=== PATIENT | female | born 1990 ===

== ENCOUNTER 2025-02-24 13:43 | Emergency (ER) | payer MEDICAID, SELFPAY ==
[2025-02-24 13:50] VITALS: BP 150/80; PULSE 83; RESP 18; TEMP 36.6; O2SAT 98; BMI 33.9
--- NOTE | 2025-02-24 13:53 | ED.GENADULT ---
HPI - General Adult General Chief complaint: Skin/Abscess/Foreign Body Stated complaint: skin infection Time Seen by Provider: 02/24/25 16:08 Source: patient, RN notes reviewed and old records reviewed Mode of arrival: ambulatory Limitations: no limitations History of Present Illness ED Provider: Sherman SEGURA narrative: 34-year-old female with past medical history significant for rheumatoid arthritis on Humira presents for evaluation of a rash. She initially felt as if she had a skin infection on both feet. She treated this for 2 days with an [id number] antifungal cream. After using the cream she felt as if her feet were more swollen. She was scratching and felt as if the rash got worse pain She went to urgent care and was given topical and oral antibiotics with mupirocin and Keflex. She completed the course and reports that his symptoms have worsened. Denies fevers or chills pain The rash is mostly itchy, no significant pain she is not a diabetic she stopped her Humira while she was taking the antibiotics Related Data Previous Rx's ?Medication ?Instructions ?Recorded doxycycline hyclate 100 mg tablet 100 mg PO BID #14 tabs 02/24/25 ketoconazole 2 % topical cream 1 appl topical BID 2 weeks #30 02/24/25 grams Allergies Allergy/AdvReac Type Severity Reaction Status Date / Time No Known Allergies Allergy Verified 02/24/25 13:54 Review of Systems Constitutional: Constitutional: Denies body ache(s), Denies chills and Denies fever(s) Eyes: Eyes: Denies blurry vision ENT: Denies vertigo Cardiovascular: Cardiovascular: Denies chest pain and Denies dyspnea on exertion Respiratory: Respiratory: Denies cough and Denies dyspnea on exertion Gastrointestinal: Gastrointestinal: Denies abdominal pain, Denies nausea and Denies vomiting Musculoskeletal: Musculoskeletal: Denies back pain Integumentary/Breasts: Skin/Breast: Reports pruritus and Reports rash Neurologic: Denies vertigo Psychiatric: Psychiatric: Denies anxiety PMFSH Social History Social History Advance Directives: No Advance Directives Information Provided: Yes Physical Exam ED Vital Signs: Vital Signs - 24 hr 02/24/25 13:50 Temperature 97.9 F Pulse Rate 83 Respiratory Rate 18 Blood Pressure 150/80 H Pulse Oximetry 98 Oxygen Delivery Method Room Air BMI result Body Mass Index 33.9 Const General: healthy appearing, comfortable, no acute distress, alert and awake Nutritional Appearance: well nourished Orientation/consciousness: patient oriented x3 HENMT Head: Yes normocephalic and Yes atraumatic Eyes Eyelids: Yes eyelids normal Conjunctivae: conjunctivae normal Sclerae: sclerae normal Corneas: corneas normal Pupils: Equal, round and reactive pupils present EOM: EOMs intact bilaterally Neck Neck: Yes full ROM Resp Effort & Inspection: normal respiratory effort, able to speak in complete sentences and not labored Skin Other: there was an erythematous rash on the dorsal surface of the foot, there was no significant involvement between the toes. There is some scaling noted, some skin breakdown. No significant increased warmth. No purulent drainage. There was a less severe, erythematous macular rash to the flexor surfaces of the elbows and the anterior neck under the chin. No facial involvement General skin exam: elasticity normal Neuro General: patient oriented x3 Cranial nerves: Yes Equal, round and reactive pupils present and Yes Bilaterally intact EOM present Cognition (Neuro): normal cognition Extrem Other: Moving all extremities well without any obvious deformities Course Course Course Narrative: This is a Rapid Medical Examination (RME) performed by Marylu Ramos PA-C in triage. Full HPI, ROS, assessment and treatment plan per primary provider in the Main ED. Hx: 34 yo F here for eval of skin infection/rash. evaluated at 2 weeks ago for rash to b/l feet - diagnosed w/ cellulitis/impetigo, discharged w/ topical mupirocin and betamethasone and PO keflex. completed PO abx. now having worsening rash to feet with a new diffuse body rash that is pruritic. Plan: labs Medical Decision Making Medical Decision Making [facility] Narrative: the patient's rash does not appear to be consistent with a clear cellulitis. It is unlikely that she would have cellulitis on both feet at the same time. There was no increased warmth, no fevers the patient has no leukocytosis. I did discuss with my attending and we decided to treat the patient with a topical antifungal with ketoconazole twice daily for 2 weeks. We will still cover with antibiotics as the patient does have some skin breakdown to cover for superimposed cellulitis. less likely this is an atypical eczema presentation and we encouraged the patient to follow up with Dermatology. Return precautions were given including fever, significantly worsening of the rash Differential Diagnosis Differential Diagnoses: The differential diagnosis associated with the presentation includes dermatitis Cellulitis Tinea pedis Candidiasis Eczema Lab Data MDM Lab Attestation statement: I reviewed the patient's lab results. no leukocytosis or anemia. Normal platelet count. No significant electrolyte abnormalities warranting dimension. 02/24/25 14:16 02/24/25 14:16 Labs: Lab Results 02/24/25 Range/Units 14:16 WBC 5.0 (4.8-10.8) X10*3/uL RBC 4.75 (4.20-5.50) X10*6/uL Hgb 14.1 (12.0-16.0) g/dl Hct 41.9 (37.0-47.0) % MCV 88.2 (80.0-98.0) fL MCH 29.7 (27.0-33.0) pg MCHC 33.7 (31.0-35.0) g/dl RDW 12.3 (11.0-16.0) % Plt Count 291 (160-400) X10*3/uL MPV 9.3 L (9.4-12.3) fL Immature Gran % (Auto) 0.2 (0.0-0.4) % Neut % (Auto) 35.1 L (45-73) % Lymph % (Auto) 42.0 H (20-40) % [place] % (Auto) 6.6 (2-11) % Eos % (Auto) 15.1 H (0-4) % Baso % (Auto) 1.0 (0-2) % Lymph # (Auto) 2.1 (1.2-4.9) X10*3/uL [place] # (Auto) 0.3 (0.1-1.2) X10*3/uL Eos # (Auto) 0.8 H (0.0-0.4) X10*3/uL Baso # (Auto) 0.1 (0.0-0.2) X10*3/uL Abs Immat Gran (auto) 0.01 (0.00-0.03) X10*3/uL Absolute Neuts (auto) 1.8 L (2.0-8.3) x10*3/uL Absolute Nucleated RBC 0.000 (0.0-0.012) X10*3/uL Nucleated RBC % (auto) 0.0 (0.0-0.2) /100WBC Sodium 141 (135-145) mmol/L Potassium 3.4 (3.3-5.1) mmol/L Chloride 106 (96-108) mmol/L Carbon Dioxide 28 (22-29) mmol/L Anion Gap 10 L (12-20) BUN 16 (9-16) mg/dL Creatinine 0.80 (0.5-1.4) mg/dL Estim Creat Clear Calc 95.8 Estimated GFR > 60 Random Glucose 134 H (60-115) mg/dL Calcium 9.4 (8.4-10.2) mg/dL Magnesium 1.9 (1.6-2.6) mg/dL Total Bilirubin 0.6 (0.0-1.0) mg/dL AST 27 (5-31) U/L ALT 24 (0-31) U/L Alkaline Phosphatase 75 (39-117) U/L Total Protein 7.7 (6.5-8.0) g/dL Albumin 4.6 (3.5-5.0) g/dL Attestation Attending Attestation: Evaluated rash with JASSON Cain. It appears fungal in nature pruritic. Perhaps superimposed cellulitis. Will prescribe oral antibiotic and antifungal cream. Patient appears well Discharge Plan Discharge Clinical Impression: Dermatitis Patient Disposition: Home, Self-Care Instructions: Skin Yeast Infection (ED), Dermatitis (ED) Additional Instructions: your rash is consistent with initially a fungal infection. There may be a component of cellulitis as well. Apply the ketoconazole twice daily as prescribed for 2 weeks. Take doxycycline twice daily for 7 days I recommend trying to follow up with the [facility] in [place]. [address], [address], [place] [address]. Phone number: [phone] Prescriptions: New ketoconazole 2 % cream 1 appl topical BID 14 Days Qty: 30 0RF doxycycline hyclate 100 mg tablet 100 mg PO BID Qty: 14 0RF Print Language: German
[2025-02-24 14:23] LABS: MANUAL DIFF FLAG NO
[2025-02-24 14:25] LABS: Hematocrit 41.9 % (37.0-47.0); Hemoglobin 14.1 g/dl (12.0-16.0); Imm Gran Abs Auto 0.01 X10*3/uL (0.00-0.03); Imm Gran Pct Auto 0.2 % (0.0-0.4); Lymphocytes Absolute Auto 2.1 X10*3/uL (1.2-4.9); Mean Corpuscular HGB Conc 33.7 g/dl (31.0-35.0); Mean Corpuscular Hemoglobin 29.7 pg (27.0-33.0); Mean Corpuscular Volume 88.2 fL (80.0-98.0); NRBC Abs Auto 0.000 X10*3/uL (0.0-0.012); NRBC Pct Auto 0.0 /100WBC (0.0-0.2); Platelet Count 291 X10*3/uL (160-400); Red Blood Count 4.75 X10*6/uL (4.20-5.50); White Blood Count 5.0 X10*3/uL (4.8-10.8)
[2025-02-24 14:39] LABS: Alanine Aminotransferase 24 U/L (0-31); Albumin Level 4.6 g/dL (3.5-5.0); Alkaline Phosphatase 75 U/L (39-117); Anion Gap 10 (12-20); Aspartate Amino Transferase 27 U/L (5-31); Blood Urea Nitrogen 16 mg/dL (9-16); Calcium 9.4 mg/dL (8.4-10.2); Carbon Dioxide 28 mmol/L (22-29); Chloride 106 mmol/L (96-108); Creatinine Clr Calc Pharmacy 95.8; Estimated Glomerular Filt Rate > 60; Magnesium 1.9 mg/dL (1.6-2.6); Potassium 3.4 mmol/L (3.3-5.1); Sodium 141 mmol/L (135-145); Total Protein 7.7 g/dL (6.5-8.0)
[2025-02-24 17:15] VITALS: BP 124/73; PULSE 75; RESP 18; TEMP 36.6; O2SAT 95
[2025-02-24 17:17] VITALS: BP 124/73; PULSE 75; RESP 18; TEMP 36.6; O2SAT 95
--- OUTSIDE RECORDS SUMMARY | 2025-02-24 21:57 | XMS_ITS | Encounter Summary ---
Author Organization [facility] Address [address] [place] [id number] Phone Care Team Providers Care Paper Tube Cutter Name Role Phone Monique Torres CNP Primary Care Provider [phone] Encounter Details Date Type Department Care Team (Late st Contact Info) Description 12/28/2021 Procedure Pass [address] [place] [address] Social History Tobacco Use Types Packs/Day Years Used Date Smoking Tobacco: Some Days Smokeless Tobacco: Never Alcohol Use Standard Drinks/Week Comments Yes 0 (1 standard drink = 0.6 oz pur e alcohol) rarely Comments Unknown Sex and Gender Information Value Date Recorded Sex Assigned at Female 06/19/2018 10:59 PM EST Legal Sex Female 10:52 PM EST Gender Identity Female 06/19/2018 10:59 PM EST Sexual Orientation Lesbian or Chairez 06/13/2023 10 :35 AM EST documented as of this encounter Plan of Treatment Not on file documented as of this encounter Visit Diagnoses Not on filedocumented in this encounter Additional Health Concerns Infection Onset Date Last Indicated Resolved Time COVID-19 12/06/2022 12/06/2022 12/27/2022 1:21 AM EDT documented as of this encounter Care Teams Paper Tube Cutter Relationship Specialty Start Date End Date Monique Torres CNP [address] [place] [address] ISABELL Scott [id number] [email or web address] PCP - General Adult Health 06/19/18 documented as of this encounter Additional Source Comments The information contained in this document represents components of the legal health record. It is not the complete legal health record.[facility]
--- OUTSIDE RECORDS SUMMARY | 2025-02-24 21:57 | XMS_ITS | Encounter Summary ---
Author Organization [facility] Address [address] [place] [address] Phone Care Team Providers Care Casino Porter Name Role Phone Monique Torres CNP Primary Care Provider [phone] Encounter Details Date Type Department Care Team (Latest Contact Info) Description 12/07/2021 Transcribe Orders Virtual Department [address] [place] [address] Mago Delacruz NP [address] [place] [address] LLQ abdominal pain (Primary Dx); Constipation, unspecified constipation type Social History Tobacco Use Types Packs/Day Years [...] on file documented as of this encounter Results * US ABDOMEN COMPLETE (ADULT) (12/26/2021 8:40 AM EDT) Anatomical Region Laterality Modality Abdomen Ultrasound 12/26/2021 12:0 7 PM EDT Impressions 12/26/2021 12:12 PM EDT 1.No significant sonographic abnormality in the abdomen. 2.3 cm left ovarian hemorrhagic cyst, corresponding to the area of pain indicated by the patient, benign. No imaging follow-up is required as per current ACR guidelines. Narrative 12/26/2021 12:12 PM EDT US ABDOMEN COMPLETE (ADULT) TECHNIQUE: Abdominal Ultrasound Complete. COMPARISON: None FINDINGS: Liver: Normal. No focal lesions. Main Portal Vein: Patent with normal direction of flow. Gallbladder: Normal. No gallstones or gallbladder wall thickening. Biliary: Normal. No intrahepatic or extrahepatic biliary ductal dilatation. The common bile duct measures 3 mm. Pancreas: Visualized portions are unremarkable Spleen: Normal. No splenomegaly. Kidneys: Normal. No stones or hydronephrosis. Aorta: Normal, where visualized sonographically. IVC: Normal intrahepatic segment. Targeted ultrasound examination of the area of pain indicated by the patient over the left lower quadrant demonstrates the left ovary which measures 5.5 x 3.7 x 3.2 cm with a 3 x 1.8 x 2.2 cm left ovarian complex cystic mass with dependent echogenic fluid fluid level and no significant internal vascularity, most likely representing a hemorrhagic cyst Procedure Note Jaqueline Dixon MD - 12/26/2021 US ABDOMEN COMPLETE (ADULT) TECHNIQUE: Abdominal Ultrasound Complete. COMPARISON: None FINDINGS: Liver: Normal. No focal lesions. Main Portal Vein: Patent with normal direction of flow. Gallbladder: Normal. No gallstones or gallbladder wall thickening. Biliary: Normal. No intrahepatic or extrahepatic biliary ductaldilatation. The common bile duct measures 3 mm. Pancreas: Visualized portions are unremarkable Spleen: Normal. No splenomegaly. Kidneys: Normal. No stones or hydronephrosis. Aorta: Normal, where visualized sonographically. IVC: Normal intrahepatic segment. Targeted ultrasound examination of the area of pain indicated by thepatient over the left lower quadrant demonstrates the left ovary whichmeasures 5.5 x 3.7 x 3.2 cm with a 3 x 1.8 x 2.2 cm left ovarian complexcystic mass with dependent echogenic fluid fluid level and no significantinternal vascularity, most likely representing a hemorrhagic cyst IMPRESSION: 1.No significant sonographic abnormality in the abdomen. 2.3 cm left ovarian hemorrhagic cyst, corresponding to the area of painindicated by the patient, benign. No imaging follow-up is required as percurrent ACR guidelines. us Mago Delacruz PROSPECT MANAGER IMG US ABDOMEN Final Res ult documented in this encounter Visit Diagnoses Diagnosis LLQ abdominal pain- Primary Abdominal pain, left lower quadrant Constipation, unspecified constipation type LLQ abdominal pain Abdominal pain, left lower quadrant Constipation, unspecified constipation type documented in this encounter Additional Health Concerns Infection Onset Date Last Indicated Resolved Time COVID-19 12/06/2022 12/06/2022 12/27/2022 1:21 AM EDT documented as of this encounter Care Teams Casino Porter Relationship Specialty Start Date End Date Monique Torres CNP [address] [place] [id number] [email or web address] PCP - General Adult Health 06/19/18 documented as of this encounter Additional Source Comments The information contained in this document represents components of the legal health record. It is not the complete legal health record.[facility]
--- OUTSIDE RECORDS SUMMARY | 2025-02-24 21:58 | XMS_ITS | Encounter Summary ---
Author Organization [facility] Address [address] [place] [address] [address] [place] [address] Phone Care Team Providers Care Potato Chip Maker Name Role Phone Monique Torres ABELARDO Primary Care Provider [phone] Encounter Details Date Type Department Care Team (Latest Contact Info) Description 04/06/2024 Ancillary [place] [facility] [place] [address], [address] [place] [address] Kristina Ashley MD [address] [place] [id number] [email or web address] Rheumatoid arthritis 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 (Primary Dx); Calcific tendinitis of left hip; Greater trochanteric pain syndrome; High risk medication use; Femoroacetabular impingement; Onychomycosis; Hair loss; Xerophthalmia Social History Tobacco Use Types Packs/Day Years Used Date Smoking Tobacco: Some Days Smokeless Tobacco: Never Alcohol Use Standard Drinks/Week Comments Yes 0 (1 standard drink = 0.6 oz pur e alcohol) rarely Child or Family Care Answer Date Record ed Do you have problems with on e of the following making it difficult for you to work, study, or receive health care? No 06/18/2023 Education Answer Date Recorded Are you interested in help w ith more adult education (for example, completing high school, GED, job training, learning the [place] language, technical skills, or developing parenting skills)? No 06/18/2023 Are you concerned about learning? Not on file 06/18/2023 No 06/18/2023 Yes 06/18/2023 Food Answer Date Recorded Within the past 6 months we worried whether our food would run out before we got money to buy more. Never True 06/18/2023 Within the past 6 months the food we bought just didn't last and we didn't have enough money to get more. Never True Residential Stability Answer Date Recor ded What is your housing situation today? I have sam sing 06/18/2023 How many times have you move d in the past 12 months? Zero (I did not move) 06/18/2023 Paying for Meds Answer Date Recorded Do you have trouble paying for medicines? No 06/18/2023 Paying Utility Bills Answer Date Record ed Do you have trouble paying your heating or elect ricity bill? No 06/18/2023 Transportation Answer Date Recorded Has the lack of transportati on kept you from medical appointments or from getting medications? No 06/18/2023 Unemployment Answer Date Recorded Are you currently unemployed or working on a part-time or temporary basis, and looking for work? No 06/18/2023 Digital Access Answer Date Recorded No 06/18/2023 Yes 06/18/2023 Do you have reliable internet access at home? Ye s 06/18/2023 Do you have a device (e.g., phone, tablet, computer) with a working camera? Yes 06/18/2023 Comments Unknown Sex and Gender Information Value Date Recorded Sex Assigned at Female 06/19/2018 10:59 PM EST Legal Sex Female 10:52 PM EST Gender Identity Female 06/19/2018 10:59 PM EST Sexual Orientation Lesbian or Chairez 06/13/2023 10 :35 AM EST documented as of this encounter Plan of Treatment Not on file documented as of this encounter Results * XR HAND 3 OR MORE VIEWS (BILATERAL) (04/06/2024 2:21 PM EST) Anatomical Region Laterality Modality Hand Left Computed Radiogr aphy 04/06/2024 3:25 PM EST Impressions 04/06/2024 3:26 PM EST No evidence of inflammatory arthritis. Narrative 04/06/2024 3:26 PM EST XR HAND 3 OR MORE VIEWS (BILATERAL) Referring clinician's provided indication for this examination in Epic: Pain; RA COMPARISON: XR HAND 3 OR MORE VIEWS (BILATERAL) FINDINGS: Left hand: Normal joint spaces. No acute fracture or dislocation. No soft tissue swelling. No erosion. Right hand: Normal joint spaces. No acute fracture or dislocation. No soft tissue swelling. No erosion. Procedure Note Dana Martinez MD - 04/06/2024 XR HAND 3 OR MORE VIEWS (BILATERAL) Referring clinician's provided indication for this examination in Epic:Pain; RA COMPARISON: XR HAND 3 OR MORE VIEWS (BILATERAL) FINDINGS: Left hand: Normal joint spaces. No acute fracture or dislocation. No softtissue swelling. No erosion. Right hand: Normal joint spaces. No acute fracture or dislocation. No softtissue swelling. No erosion. IMPRESSION: No evidence of inflammatory arthritis. us Kristina Ashley MD IMG XR UPPER EXTREMITY Final Re sult documented in this encounter Visit Diagnoses Diagnosis Rheumatoid arthritis 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 Rheumatoid arthritis 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- Primary Calcific tendinitis of left hip Greater trochanteric pain syndrome High risk medication use Femoroacetabular impingement Onychomycosis Dermatophytosis of nail Hair loss Unspecified alopecia Xerophthalmia Conjunctival xerosis documented in this encounter Care Teams Potato Chip Maker Relationship Specialty Start Date End Date Monique Torres CNP [address] [place] [id number] PCP - General Adult Health 06/19/18 documented as of this encounter Additional Source Comments The information contained in this document represents components of the legal health record. It is not the complete legal health record.[facility]
--- OUTSIDE RECORDS SUMMARY | 2025-02-24 21:58 | XMS_ITS | Clinical Summary ---
Author Organization [facility] Address [address] [place] [phone] Phone Care Team Providers Care Retention Manager Name Role Phone Melissa Monique Keita CNP Primary Care Provider [phone] Allergies No known active allergies Medications b complex vitamins capsule Take 1 capsule by mouth daily. Active cholecalciferol (VITAMIN D3) 5,000 unit tablet Take 1,000 Units by mouth daily. Active cetirizine (ZYRTEC) 10 MG tablet Take 10 mg by mouth daily as needed. Active omega 1-hfn-etk-fish oil 1,000 mg (120 mg-180 mg) Cap Take 1 capsule by mouth daily. Active naproxen sodium (ALEVE) 220 MG tabletIndication s:as needed Take 220 mg by mouth 2 (two) times a day with meals. Indications : as needed Active levomefolate calcium (L-METHYLFOLATE ORAL) 1 mcg. 1-2 tablet daily Active buPROPion (WELLBUTRIN SR) 150 MG SR 12 hr tablet Take 200 mg by mouth daily. 05/23/19 22 Active lisdexamfetamine (VYVANSE) 10 mg capsule Take 10 mg by mouth daily. 07/06/19 22 Active folic acid (FOLVITE) 1 MG tabletIndication s:Rheumatoid arthritis 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 Take 3 tab daily 90 tablet 3 11/25/19 24 Active tocilizumab (ACTEMRA) 162 mg/0.9 mL subcutaneous pen injectionIndicat ions:Rheumatoid arthritis 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 Inject 0.9 mL (162 mg total) under the skin every other week. 1.8 mL 4 02/18/20 25 Active leflunomide (ARAVA) 20 MG tabletIndication s:Rheumatoid arthritis 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 Take 1 tablet (20 mg total) by mouth daily. 90 tablet 2 10/07/19 25 025 Discontinued HUMIRA,CF, PEN 40 mg/0.4 mL pen kit citrate freeIndications: Rheumatoid arthritis 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 INJECT 1 PEN (40MG TOTAL) UNDER THE SKIN EVERY 7 DAYS. 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) On MTX 20 mg weekly Enbrel 50 mg weekly started 06/2021 Remains symptomatic but too early to know if Enbrel will be effective Continue current Tx F/u 2 months, if remains symptomatic, will need to change biologic Assessment & Plan (12/21/2021 10:54 AM EDT): Seropositve RA (pos RF and CCP ab) Treated with MTX 20 mg weekly but remained symptomtomatic Enbrel 50 mg 06/2021- 09/24 ineffective Changed to humira and dose of MTX decreased to 10 mg weekly Overall doing better with less pain and no synovitis on exam Continue current tx Add Leucovorin 2-3 tabs after MTX for mild hair loss Labs q 6-8 week F/u 3 months, Assessment & Plan (07/30/2021 12:36 PM EDT): Seropositve RA (pos RF and CCP ab) On MTX 20 mg weekly Enbrel 50 mg weekly started 06/2021 Remains symptomatic but too early to know if Enbrel will be effective Continue current Tx F/u 2 months, if remains symptomatic, will need to change biologic Encounters Date Type Department Care Team Description 02/17/2025 1:40 PM EDT Telemedicine [facility] Musculoskeletal [address], [address], [address] [place] [address] Kristina Ashley MD Rheumatoid arthritis 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 (Primary Dx); Calcific tendinitis of left hip; Greater trochanteric pain syndrome; Femoroacetabular impingement, unspecified laterality; High risk medication use; Foot pain, right; Xerophthalmia; Tarsal coalition 02/02/2025 11:51 AM EDT - 02/02/2025 11:59 PM EDT Hospital Encounter [facility] [address] [place] [address] Kristina Ashley MD Discharge Disposition: Home or Self Care 12/31/2024 Documentation [facility] [address] [place] [address] Brenna Kline RPH 12/31/2024 Refill [facility] Rheumatology [address], [address] [place] [address] Kristina Ashley MD Medication Refill from Last 3 Months Immunizations Immunization Administration Dates Next Due Tdap 06/19/2018 Family History Relation Status Comments Father Alive Mother Alive Social History Tobacco Use Types Packs/Day Years [...] work, study, or receive health care? No 06/29/2024 Education Answer Date Recorded Are you interested in help w ith more adult education (for example, completing high school, GED, job training, learning the [place] language, technical skills, or developing parenting skills)? No 06/29/2024 Are you concerned about learning? Not on file 06/29/2024 No 06/29/2024 Yes 06/29/2024 Food Answer Date Recorded Within the past 6 months we worried whether our food would run out before we got money to buy more. Never True 06/29/2024 Within the past 6 months the food we bought just didn't last and we didn't have enough money to get more. Never True Residential Stability Answer Date Recor ded What is your housing situation today? I am stayi ng with others 06/29/2024 How many times have you move d in the past 12 months? I choose not to answer 06/29/2024 Paying for Meds Answer Date Recorded Do you have trouble paying for medicines? No 06/29/2024 Paying Utility Bills Answer Date Record ed Do you have trouble paying your heating or elect ricity bill? No 06/29/2024 Transportation Answer Date Recorded Has the lack of transportati on kept you from medical appointments or from getting medications? No 06/29/2024 Unemployment Answer Date Recorded Are you currently unemployed or working on a part-time or temporary basis, and looking for work? Yes 06/29/2024 Digital Access Answer Date Recorded No 06/29/2024 Yes 06/29/2024 Do you have reliable internet access at home? Ye s 06/29/2024 Do you have a device (e.g., phone, tablet, computer) with a working camera? Yes 06/29/2024 SNAP & WIC Answer Date Recorded Do you receive benefits from SNAP (the Supplemental Nutrition Assistance Program) or the Food Stamp Program? No 06/29/2024 SNAP is a free program that can help you and your family get access to healthy foods, nutrition classes, utility discounts, and more. Would you be interested in learning more? No 06/29/2024 Can we help you enroll in SNAP? Not on file 06/29/2024 Benefits received from WIC? Not on file 06/07 WIC is a free program, interested in learning mo re? Not on file 06/29/2024 Can we help you enroll in WIC? Not on file 0 06/29/2024 Comments Unknown Sex and Gender Information Value Date Recorded Sex Assigned at Female 06/19/2018 10:59 PM EST Legal Sex Female 10:52 PM EST Gender Identity Female 06/19/2018 10:59 PM EST Sexual Orientation Lesbian or [place]aire[place] 06/13/2023 10 :35 AM EST Last Filed Vital Signs Vital Sign Reading Time Taken Comments Blood Pressure 139/90 10/06/2024 2:20 PM EDT Pulse 69 10/06/2024 2:20 PM EDT Temperature 36.1 C (97 F) 10/07/2023 2:37 PM EDT Respiratory Rate 16 09/28/2021 10:01 AM EDT Oxygen Saturation 99% 10/06/2024 2:20 PM EDT Inhaled Oxygen Concentration - - Weight 82.2 kg (181 lb 3.2 oz) 10/06/2024 2:20 P M EDT Height 154.9 cm (5' 1 ) 10/06/2024 2:20 PM EDT Body Mass Index 34.24 10/06/2024 2:20 PM EDT Plan of Treatment Health Maintenance Due Date Last Done Comments DEPRESSION SCREENING 2002 SMOKING Hx and SMOKELESS TOBACCO SCREENING 08/06/2003 HIV ONE-TIME SCREENING (18-65 YEARS) 2008 PNEUMOCOCCAL VACCINES (0-49 years) (1 of 2 - PCV) 2009 PAP SMEAR 08/06/2011 INFLUENZA VACCINE (#1) 2024 , 04/19/2023, 03/02/2022, Additional history exists COVID-19 VACCINE ( season) 2025 04/23/2024, 04/19/2023, 03/02/2022, Additional history exists Adult Td,Tdap Booster 06/19/2028 06/19/2018 HEPATITIS C SCREENING Completed 11/21/2020 HEPATITIS A VACCINES Aged Out No long er eligible based on patient's age to complete this topic HIB VACCINES Aged Out No longer eligi ble based on patient's age to complete this topic MENINGOCOCCAL VACCINES (ACWY) Aged Out No longer eligible based on patient's age to complete this topic MENINGOCOCCAL VACCINES (B) Aged Out N o longer eligible based on patient's age to complete this topic Medical Devices Not on file Procedures Procedure Name Priority Date/Time Associated Diagnosis Comments CBC AND DIFFERENTIAL Routine 02/02/2025 12:01 PM EDT Rheumatoid arthritis 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 COMPREHENSIVE METABOLIC PANEL Routine 02/02/2025 12:01 PM EDT Rheumatoid arthritis 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 C-REACTIVE PROTEIN Routine 02/02/2025 12 :01 PM EDT Rheumatoid arthritis 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 SEDIMENTATION RATE (ESR) Routine 02/02/2025 12:01 PM EDT Rheumatoid arthritis 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 HEPATITIS C ANTIBODY, QUALITATIVE Routine 11/21/2020 1:54 PM EDT Need for hepatitis C screening test from Last 3 Months or Most Recently Relevant to Health Maintenance Results * Comprehensive metabolic panel (02/02/2025 12:01 PM EDT) SODIUM 141 133 - 146 mmol/L [facility] POTASSIUM 4.1 3.3 - 5.1 mmol/L [facility] CHLORIDE 107 96 - 108 mmol/L [facility] CO2 25 21 - 35 mmol/L [facility] BUN 12 6 - 19 mg/dL [facility] CREATININE 0.70 0.5 - 1.5 mg/dL [facility] GLUCOSE 92 70 - 99 mg/dL [facility] ALBUMIN 4.1 3.9 - 4.8 g/dL [facility] TOTAL PROTEIN 7.3 6.5 - 8.0 g/dL [facility] CALCIUM 9.1 8.4 - 10.3 mg/dL [facility] ALKALINE PHOSPHATASE 68 39 - 117 U/L [facility] TOTAL BILIRUBIN 0.7 0.0 - 1.2 mg/dL [facility] AST 37 0 - 37 U/L [facility] ALT 31 0 - 40 U/L [facility] GLOBULIN 3.2 1 - 4.8 g/dL [facility] EGFR 116 >59 mL/min/1.7 3m2 [facility] Comment:Estimated glomerular filtration rate calculated using the CKD-EPI refit equation. ANION GAP 13 10 - 20 mmol/L [facility] Blood 02/02/2025 12:0 1 PM EDT 02/02/2025 12:03 PM EDT us Kristina Ashley MD LAB BLOOD ORDERABLES Final Resu lt [facility] [address] [place] [address] * Sedimentation rate (ESR) (02/02/2025 12:01 PM EDT) ESR 17 0 - 20 mm/h [facility] Blood 02/02/2025 12:0 1 PM EDT 02/02/2025 12:03 PM EDT us Kristina Ashley MD LAB BLOOD ORDERABLES Final Resu lt [facility] [address] [place] [address] * (ABNORMAL) CBC and differential (02/02/2025 12:01 PM EDT) WBC 6.44 4.00 - 11.00 K/uL [facility] RBC 4.31 4.00 - 5.20 M/uL [facility] HGB 12.6 12.0 - 16.0 g/dL [facility] HCT 38.3 36.0 - 46.0 % [facility] PLT Not measured 150 - 450 K/uL [facility] Comment:Platelet clumps seen on smear. Unable to estimate count. MCV 88.9 80.0 - 100.0 fL [facility] MCH 29.2 27.0 - 31.0 pg [facility] MCHC 32.9 32.0 - 36.0 g/dL [facility] RDW 13.3 11.5 - 14.5 % [facility] MPV Not measured 8.4 - 12.0 fL [facility] NRBC 0.00 0.00 /100 WBCs [facility] ABSOLUTE NRBC 0.00 0.00 K/uL [facility] DIFF METHOD Auto [facility] NEUTS 41.6(L) 48.0 - 76.0 % [facility] LYMPHS 42.5(H) 18.0 - 41.0 % [facility] MONOS 9.3 4.0 - 11.0 % [facility] EOS 5.1(H) 0.0 - 5.0 % [facility] BASOS 0.9 0.0 - 1.5 % [facility] Granulocytes, immature (%) 0.6 0.0 - 0.9 % [facility] ABSOLUTE NEUTS 2.67 1.92 - 7.60 K/uL [facility] ABSOLUTE LYMPHS 2.74 0.72 - 4.10 K/uL [facility] ABSOLUTE MONOS 0.60 0.16 - 1.10 K/uL [facility] ABSOLUTE EOS 0.33 0.00 - 0.50 K/uL [facility] ABSOLUTE BASOS 0.06 0.00 - 0.15 K/uL [facility] Granulocytes, immature 0.04 0.00 - 0.09 K/uL [facility] Blood 02/02/2025 12:0 1 PM EDT 02/02/2025 12:03 PM EDT us Kristina Ashley MD LAB BLOOD ORDERABLES Final Resu lt Performing Organization Address [facility]/ZIP Co de Phone Number [address] [phone] * C-Reactive Protein (02/02/2025 12:01 PM EDT) C REACTIVE PROTEIN 4.0 0.0 - 4.0 mg/L [facility] Blood 02/02/2025 12:0 1 PM EDT 02/02/2025 12:03 PM EDT us Kristina Ashley MD LAB BLOOD ORDERABLES Final Resu lt Performing Organization Address [facility]/ZIP Co de Phone Number [address] [phone] * Hepatitis C antibody, qualitative (11/21/2020 1:54 PM EDT) HCV NON-REACTIV E NON-REACTI VE [facility] Blood 11/21/2020 1:54 PM EDT 11/21/2020 1:56 PM EDT us Mejia Pritchard MD LAB BLOOD ORDERAB LES Final Result Performing Organization Address [facility]/ZIP Co de Phone Number [address] [phone] from Last 3 Months or Most Recently Relevant to Health Maintenance Insurance [facility] ACO [facility] [place] [address] [place] [address] ACO ACO [facility] [place] [id number] [place] [id number] Care Teams Retention Manager Relationship Specialty Start Date End Date Monique Torres CNP [address] [place] [id number] [email or web address] PCP - General Adult Health 06/19/18 Additional Source Comments The information contained in this document represents components of the legal health record. It is not the complete legal health record.[facility]
--- OUTSIDE RECORDS SUMMARY | 2025-02-24 21:58 | XMS_ITS | Encounter Summary ---
Author Organization [facility] Address [address] [place] [address] [address] [place] [address] Phone Care Team Providers Care Hose Mender Name Role Phone Monique Torres ABELARDO Primary Care Provider [phone] Encounter Details Date Type Department Care Team (Latest Contact Info) Description 06/27/2023 Ancillary Orders [facility] Musculoskeletal [address], [address] [place] [address] Kristina Ashley MD [address] [place] [id number] [email or web address] Rheumatoid arthritis 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 (Primary Dx); High risk medication use; Onychomycosis; Femoroacetabular impingement; Xerophthalmia; Hair loss Social History Tobacco Use Types Packs/Day Years [...] high school, GED, job training, learning the [place]ym[place] language, technical skills, or developing parenting skills)? [...] as of this encounter Results * XR PELVIS AP PLUS FROG OR OUTLET 2 VIEWS (06/27/2023 10:34 AM EST) Anatomical Region Laterality Modality Hip, Pelvis Computed Radiogr aphy 06/28/2023 2:58 PM EST Impressions 06/28/2023 3:01 PM EST Mild sacroiliac joint bony proliferative changes. Questionable erosions along the inferior portions of the iliac bones. Mild right lateral acetabular bony proliferative change. Left gluteal enthesopathy at the greater trochanter. Narrative 06/28/2023 3:01 PM EST XR PELVIS AP PLUS FROG OR OUTLET 2 VIEWS Referring clinician's provided indication for this examination in Epic: Pain COMPARISON: None FINDINGS: PELVIS: Pelvic ring intact. No displaced fracture. Mild sacroiliac joint bony proliferative changes. Questionable erosions along the inferior portions of the sacroiliac joints. RIGHT HIP: Joint space preserved. Mild lateral acetabular bony proliferative change. LEFT HIP: Joint space preserved. Gluteal enthesopathy at the greater trochanter. Procedure Note Yakov Hunter MD - 06/28/2023 XR PELVIS AP PLUS FROG OR OUTLET 2 VIEWS Referring clinician's provided indication for this examination in Epic:Pain COMPARISON: None FINDINGS: PELVIS: Pelvic ring intact. No displaced fracture. Mild sacroiliac jointbony proliferative changes. Questionable erosions along the inferiorportions of the sacroiliac joints. RIGHT HIP: Joint space preserved. Mild lateral acetabular bonyproliferative change. LEFT HIP: Joint space preserved. Gluteal enthesopathy at the greatertrochanter. IMPRESSION: Mild sacroiliac joint bony proliferative changes. Questionable erosionsalong the inferior portions of the iliac bones. Mild right lateral acetabular bony proliferative change. Left gluteal enthesopathy at the greater trochanter. 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 It is not the complete legal health record.[facility]
== END 2025-02-24 17:18 | disposition home or self-care (01) ==
PROVIDERS: Physician Assistant Medical; Emergency Provider Student in an Organized Health Care Education/Training Program
DX: L30.9 Dermatitis, unspecified (principal); Z79.899 Other long term (current) drug therapy
CPT/HCPCS: 36415; 80053; 83735; 85025; 99283; 99284